=== PATIENT | female | born 2000 | race Caucasian/White ===

== ENCOUNTER → 2018-01-16 | Outpatient (CLI) | payer OTHER ==
--- NOTE | 2018-01-16 11:41 | US ---
EXAMINATION TYPE: US abdomen complete DATE OF EXAM: 01/16/2018 COMPARISON: CT 08/09/2015 CLINICAL HISTORY: R10.9 ABD PAIN,N94.6 DYSMENORRHEA. EXAM MEASUREMENTS: Liver Length: 12.8 cm Gallbladder Wall: surgically absent CBD: 0.3 cm Spleen: 14.0 cm Right Kidney: 11.7 x 4.2 x 5.4 cm Left Kidney: 10.4 x 5.2 x 5.2 cm Pancreas: Obscured by bowel gas Liver: Imaging limited to intercostal spaces due to gas(h/o constipation) Gallbladder: Surgically absent Evidence for sonographic Mills's sign: no CBD: wnl Spleen: slightly enlarged Right Kidney: No hydronephrosis or masses seen Left Kidney: No hydronephrosis or masses seen Upper IVC: Obscured by overlying bowel gas Abd Aorta: Obscured by overlying bowel gas The liver is homogenous. The intrahepatic portion of the IVC and proximal abdominal aorta are within normal limits. Common bile duct is unremarkable. The visualized portions of the pancreas are homog enous. The spleen is unremarkable. Kidneys are symmetric and free of hydronephrosis. No renal lesi ons are seen. IMPRESSION: 1. No distinct abnormality seen.
--- NOTE | 2018-01-16 11:44 | US ---
EXAMINATION TYPE: US pelvic complete DATE OF EXAM: 01/16/2018 COMPARISON: NONE CLINICAL HISTORY: R10.9 ABD PAIN,N94.6 DYSMENORRHEA. TECHNIQUE: . Transabdominal sonographic images of the pelvis were acquired. Transvaginal sonographi c images were medically necessary to better assess the following anatomy: Date of LMP: EXAM MEASUREMENTS: Uterus: 13.0 x 3.3 x 6.5 cm Endometrial Stripe: 0.3 cm Right Ovary: 3.1 x 2.6 x 3.3 cm Left Ovary: cm 1. Uterus: elongated, located lateral to bladder 2. Endometrium: wnl 3. Right Ovary: wnl 4. Left Ovary: wnl 5. Bilateral Adnexa: wnl 6. Posterior cul-de-sac: wnl IMPRESSION: No significant abnormality.
== END | disposition home or self-care (01) ==
LOC: RADUSWWP 10:09 → MERGE 10:20
PROVIDERS: ATTEND Family Medicine
DX: R10.9 Unspecified abdominal pain (principal)
CPT/HCPCS: 76700; 76856

== ENCOUNTER 2018-12-08 19:46 | Emergency (ER) | payer BC, OTHER ==
[2018-12-08] MEDS ORDERED: SODIUM CHLORIDE 0.9% 500 ML 500 ML IV STA ×2 (21:00→21:50)
[2018-12-08 21:39] LABS: Basophils % (A) 0 %; Eosinophils # (A) 0.1 k/uL (0-0.7); Eosinophils % (A) 1 %; HCT 35.9 % (34.0-46.0); HGB 11.1 gm/dL (11.4-16.0); Lymphocytes # (A) 1.8 k/uL (1.0-4.8); Lymphocytes % (A) 26 %; MCH 22.4 pg (25.0-35.0); MCV 72.2 fL (80.0-100.0); Mean Platelet Volume 6.8; Microcytosis Moderate; Monocytes # (A) 0.3 k/uL (0-1.0); Monocytes % (A) 5 %; Neutrophils # (A) 4.6 k/uL (1.3-7.7); Neutrophils % (A) 66 %; Platelet Count 243 k/uL (150-450); RBC 4.97 m/uL (3.80-5.40); RDW 14.6 % (11.5-15.5); WBC 6.9 k/uL (4.0-11.0)
[2018-12-08 21:47] LABS: ALT 12 U/L (9-52); AST 21 U/L (14-36); African American GFR (CKD) >90 (>60 ml/min/1.73 sqM); Albumin 4.7 g/dL (3.5-5.0); Alkaline Phosphatase 122 U/L (38-126); Anion Gap 11 mmol/L; Blood Urea Nitrogen 11 mg/dL (7-17); Calcium 9.1 mg/dL (8.4-10.2); Carbon Dioxide 24 mmol/L (22-30); Chloride 105 mmol/L (98-107); Glucose 94 mg/dL (74-99); Lipase 39 U/L (23-300); Potassium 3.8 mmol/L (3.5-5.1); Sodium 140 mmol/L (137-145); Total Bilirubin 0.3 mg/dL (0.2-1.3); Total Protein 8.1 g/dL (6.3-8.2)
[2018-12-08] MEDS ORDERED: PANTOPRAZOLE 40 MG/10 ML VIAL IVP STA (21:50)
[2018-12-08 22:26] LABS: Bacteria,Urine Many /hpf; Squamous Epithelial Cell,Urine 113 /hpf (0-4)
[2018-12-08 22:27] LABS: Appearance,Urine Bloody (Clear); Color,Urine Dark Red
[2018-12-08 22:28] LABS: RBC,Urine >182 /hpf (0-5); WBC,Urine >182 /hpf (0-5)
--- NOTE | 2018-12-08 23:03 | CT ---
EXAM: CT Abdomen and Pelvis With Intravenous Contrast CLINICAL HISTORY: ITS.REASON CT Reason: Pain TECHNIQUE: Axial computed tomography images of the abdomen and pelvis with intravenous contrast. This CT exam was performed using one or more of the following dose reduction techniques: automated exposure control, adjustment of the mA and/or kV according to patient size, and/or use of iterative reconstruction technique. COMPARISON: No relevant prior studies available. FINDINGS: Lung bases: Unremarkable. No mass. No consolidation. ABDOMEN: Liver: Unremarkable. No mass. Gallbladder and bile ducts: No abnormal ductal dilation or stones. Pancreas: Unremarkable. No mass. No ductal dilation. Spleen: Splenomegaly, 15.5 cm Adrenals: Unremarkable. No mass. Kidneys and ureters: Unremarkable. No solid mass. No hydronephrosis. Stomach and bowel: There is severe fecal impaction in the rectum with associated rectal wall thickening indicating stercoral colitis. Abundant stool throughout the colon. PELVIS: Appendix: No findings to suggest acute appendicitis. Bladder: Unremarkable. No mass. Reproductive: Unremarkable as visualized. ABDOMEN and PELVIS: Intraperitoneal space: Unremarkable. No free air. No significant fluid collection. Bones/joints: No acute fracture. No dislocation. Soft tissues: Unremarkable. Vasculature: No abdominal aortic aneurysm. Lymph nodes: Unremarkable. No enlarged lymph nodes. IMPRESSION: 1. There is severe fecal impaction in the rectum with associated rectal wall thickening indicating stercoral colitis. 2. Abundant stool throughout the colon.
--- NOTE | 2018-12-08 23:46 | ED ---
General Adult HPI - General Chief complaint: Abdominal Pain Stated complaint: Abd Pain Time Seen by Provider: 12/08/18 20:54 Source: patient, RN notes reviewed, old records reviewed Mode of arrival: ambulatory Limitations: no limitations - History of Present Illness Initial comments: 18-year-old female patient with past history of cholecystectomy. ED with approximately 3 days of epigastric abdominal pain. Patient reports that she has had nausea and vomiting. Patient denies any diarrhea. Patient reports that she has normal bowel movements. Patient denies any complaint this time. Denies any chest pain shortness of breath, fevers or chills. Patient denies any dysuria. Systemic: Pt denies fatigue, fever/chills, rash. Pt denies weakness, night s weats, weight loss. Neuro: Pt denies headache, visual disturbances, syncope or pre-syncope. HEENT: Pt denies ocular discharge or irritation, otalgia, rhinorrhea, pharyngitis or notable lymphadenopathy. Cardiopulmonary: Pt denies chest pain, SOB, heart palpitations, dyspnea on exertion. Abdominal/GI: Pt denies abdominal pain, n/v/d. : Pt denies dysuria, burning w/ urination, frequency/urgency. Denies new onset urinary or bowel incontinence. MSK: Pt denies myalgia, loss of strength or function in extremities. Neuro: Pt denies new onset weakness, paresthesias. - Related Data Home Medications Medication Instructions Recorded Confirmed Acetaminophen Tab [Tylenol Tab] 650 mg PO Q6H PRN 12/08/18 12/08/18 Previous Rx's Medication Instructions Recorded Pantoprazole Sodium [Protonix] 20 mg PO Q24HR 10 Days #10 12/08/18 tablet. Allergies Allergy/AdvReac Type Severity Reaction Status Date / Time No Known Allergies Allergy Verified 12/08/18 20:58 Review of Systems ROS Statement: Those systems with pertinent positive or pertinent negative responses have been documented in the HPI. ROS Other: All systems not noted in ROS Statement are negative. Past Medical History Past Medical History: No Reported History Additional Past Medical History / Comment(s): frequent constipation History of Any Multi-Drug Resistant Organisms: None Reported Past Surgical History: Section, Cholecystectomy, Orthopedic Surgery Additional Past Surgical History / Comment(s): tendon on middle finger left hand, colonoscopy Past Anesthesia/Blood Transfusion Reactions: Previous Problems w/ Anesthesia, Motion Sickness, Postoperative Nausea & Vomiting (PONV) Additional Past Anesthesia/Blood Transfusion Reaction / Comment(s): "hard time coming out" Past Psychological History: Anxiety, Depression Smoking Status: Never smoker Past Alcohol Use History: None Reported Past Drug Use History: None Reported - Past Family History Mother Family Medical History: No Reported History General Exam - General Exam Comments Initial Comments: Constitutional: NAD, AOX3, Pt has pleasant affect. HEENT: NC/AT, trachea midline, neck supple, no lymphadenopathy. Posterior pharynx non erythematous, without exudates. External ears appear normal, without discharge. Mucous membranes moist. Eyes PERRLA, EOM intact. There is no scleral icterus. No pallor noted. Cardiopulmonary: RRR, no murmurs, rubs or gallops, no JVD noted. Lungs CTAB in anterior and posterior beck. No peripheral edema. Abdominal exam: Abdomen soft and non-distended. Abdomen mild tenderness to palpation in epigastric region guarding or rigidity no ecchymoses. No others areas of abdominal tenderness.. Bowel sounds active in LLQ. No hepatosplenomegaly. No ecchymosis Neuro: CN II-XII grossly intact. No nuchal rigidity. No raccon eyes, no martins sign, no hemotympanum. No cervical spinal tenderness. MSK: No posterior calf tenderness bilaterally, homans sign negative bilaterally. Posterior tibialis and radial pulse +2 bilaterally. Sensation intact in upper and lower extremities. Full active ROM in upper and lower extremities, 5/5 stregnth. Limitations: no limitations Course Vital Signs 12/08/18 12/08/18 20:22 23:02 Temperature 99.0 F 98.6 F Pulse Rate 91 89 Respiratory 18 18 Rate Blood Pressure 117/76 133/96 O2 Sat by Pulse 100 99 Oximetry Medical Decision Making - Medical Decision Making 18-year-old female patient with past history of cholecystectomy. ED with approximately 3 days of epigastric abdominal pain. Patient reports that she has had nausea and vomiting. Patient denies any diarrhea. Patient reports that she has normal bowel movements. Patient denies any complaint this time. Denies any chest pain shortness of breath, fevers or chills. Patient denies any dysuria. Patient vital signs stable, afebrile. Physical exam displayed mild epigastric tenderness. No other acute pathology. investigations reveal n onpresent CBC, CMP. Lipase within normal limits. UA displayed blood, patient is on her menses right now. Urine will be cultured. HCG negative. CT abdomen and pelvis displayed a severe fecal impaction rectum with associated rectal wall thickening. Abundant stool throughout the colon. Patient was recommended digital disimpaction. Patient declined stated that she is having regular bowel movements and had one today which was normal. Patient pain resolved after Protonix. I believe the patient's pain was likely gastritis in nature. Patient was discharged with Protonix and GI follow-up. Patient will also follow up with primary care provider in 1-2 days. Patient return to ER condition worsens. Case discussed with Dr. Marinelli. - Lab Data Result diagrams: 12/08/18 21:27 12/08/18 21: Lab Results 12/08/18 12/08/18 12/08/18 Range/Units 21:27 21:27 21:27 WBC 6.9 (4.0-11.0) k/uL RBC 4.97 (3.80-5.40) m/uL Hgb 11.1 L (11.4-16.0) gm/dL Hct 35.9 (34.0-46.0) % MCV 72.2 L (80.0-100.0) fL MCH 22.4 L (25.0-35.0) pg MCHC 31.0 (31.0-37.0) g/dL RDW 14.6 (11.5-15.5) % Plt Count 243 (150-450) k/uL Neutrophils % 66 % Lymphocytes % 26 % Monocytes % 5 % Eosinophils % 1 % Basophils % 0 % Neutrophils # 4.6 (1.3-7.7) k/uL Lymphocytes # 1.8 (1.0-4.8) k/uL Monocytes # 0.3 (0-1.0) k/uL Eosinophils # 0.1 (0-0.7) k/uL Basophils # 0.0 (0-0.2) k/uL Microcytosis Moderate Sodium 140 (137-145) mmol/L Potassium 3.8 (3.5-5.1) mmol/L Chloride 105 (98-107) mmol/L Carbon Dioxide 24 (22-30) mmol/L Anion Gap 11 mmol/L BUN 11 (7-17) mg/dL Creatinine 0.62 (0.52-1.04) mg/dL Est GFR (CKD-EPI)AfAm >90 (>60 ml/min/1.73 sqM) Est GFR (CKD-EPI)NonAf >90 (>60 ml/min/1.73 sqM) Glucose 94 (74-99) mg/dL Plasma Lactic Acid Henrry 0.8 (0.7-2.0) mmol/L Calcium 9.1 (8.4-10.2) mg/dL Total Bilirubin 0.3 (0.2-1.3) mg/dL AST 21 (14-36) U/L ALT 12 (9-52) U/L Alkaline Phosphatase 122 (38-126) U/L Total Protein 8.1 (6.3-8.2) g/dL Albumin 4.7 (3.5-5.0) g/dL Lipase 39 (23-300) U/L Urine Color Urine Appearance (Clear) Urine RBC (0-5) /hpf Urine WBC (0-5) /hpf Urine WBC Clumps (None) /hpf Ur Squamous Epith Cells (0-4) /hpf Urine Bacteria (None) /hpf Urine HCG, Qual (Not Detectd) 12/08/18 12/08/18 Range/Units 22:05 22:05 WBC (4.0-11.0) k/uL RBC (3.80-5.40) m/uL Hgb (11.4-16.0) gm/dL Hct (34.0-46.0) % MCV (80.0-100.0) fL MCH (25.0-35.0) pg MCHC (31.0-37.0) g/dL RDW (11.5-15.5) % Plt Count (150-450) k/uL Neutrophils % % Lymphocytes % % Monocytes % % Eosinophils % % Basophils % % Neutrophils # (1.3-7.7) k/uL Lymphocytes # (1.0-4.8) k/uL Monocytes # (0-1.0) k/uL Eosinophils # (0-0.7) k/uL Basophils # (0-0.2) k/uL Microcytosis Sodium (137-145) mmol/L Potassium (3.5-5.1) mmol/L Chloride (98-107) mmol/L Carbon Dioxide (22-30) mmol/L Anion Gap mmol/L BUN (7-17) mg/dL Creatinine (0.52-1.04) mg/dL Est GFR (CKD-EPI)AfAm (>60 ml/min/1.73 sqM) Est GFR (CKD-EPI)NonAf (>60 ml/min/1.73 sqM) Glucose (74-99) mg/dL Plasma Lactic Acid Henrry (0.7-2.0) mmol/L Calcium (8.4-10.2) mg/dL Total Bilirubin (0.2-1.3) mg/dL AST (14-36) U/L ALT (9-52) U/L Alkaline Phosphatase (38-126) U/L Total Protein (6.3-8.2) g/dL Albumin (3.5-5.0) g/dL Lipase (23-300) U/L Urine Color Dark Red Urine Appearance Bloody H (Clear) Urine RBC >182 H (0-5) /hpf Urine WBC >182 H (0-5) /hpf Urine WBC Clumps Many H (None) /hpf Ur Squamous Epith Cells 113 H (0-4) /hpf Urine Bacteria Many H (None) /hpf Urine HCG, Qual Not Detected (Not Detectd) Disposition Clinical Impression: Abdominal pain, Gastritis Disposition: HOME SELF-CARE Condition: Stable Instructions (If sedation given, give patient instructions): Abdominal Pain (ED), Gastritis (ED) Additional Instructions: Patient to adhere to previously discussed treatment plan and will take medication(s) as directed. Patient to follow up with PCP in 1-2 days. Patient to return to ED if symptoms do not improve. Follow-up with primary care provider in 1-2 days. Follow with GI consult in 1-2 days. Take Medication as directed. Return to ER if condition worsens. Prescriptions: Pantoprazole Sodium [Protonix] 20 mg PO Q24HR 10 Days #10 tablet.dr Is patient prescribed a controlled substance at d/c from ED?: No Referrals: Juan Daniel Monge DO [Primary Care Provider] - 1-2 days Gabriel Castellanos MD [STAFF PHYSICIAN] - 1-2 days
[2018-12-09] VITALS: BP 124/60; PULSE 84; RESP 16; TEMP 98
== END 2018-12-09 00:16 | disposition home or self-care (01) ==
LOC: EC 19:46
DX: K29.70 Gastritis, unspecified, without bleeding (principal); K56.41 Fecal impaction; Z53.29 Procedure and treatment not carried out because of patient's decision for other reasons; Z90.49 Acquired absence of other specified parts of digestive tract; Z32.02 Encounter for pregnancy test, result negative
CPT/HCPCS: 99284; 96374; 96361 ×2; 36415; 80053; 83605; 83690; 85025; 81001; 81025; 74177; C9113; Q9967; 87086

== ENCOUNTER 2020-11-08 12:21 | Outpatient (CLI) | payer BC, OTHER ==
[2020-11-08 13:34] VITALS: BP 125/75; PULSE 105; RESP 16; TEMP 97.2
== END 2020-11-08 13:21 | disposition home or self-care (01) ==
LOC: FBPOP 12:21
PROVIDERS: ATTEND Obstetrics & Gynecology
DX: O36.8130 Decreased fetal movements, third trimester, not applicable or unspecified (principal); Z3A.36 36 weeks gestation of pregnancy
CPT/HCPCS: 59025

== ENCOUNTER 2020-11-17 | Outpatient (CLI) | payer BC, OTHER ==
--- NOTE | 2020-11-24 11:29 | P.MSEPDOC ---
Presenting Problems - Arrival Data Date of Arrival on Unit: 11/17/20 Time of Arrival on Unit: 13:06 Mode of Transport: Ambulatory - Complaint OB-Reason for Admission/Chief Complaint: Possible Onset of Labor Medical History - Information : 2 Para: 1 Term: 1 : 0 Abortions: Spontaneous or Elective: 0 Number of Living Children: 1 - Gestational Age Gestational Age by REI (wks/days): 37 Weeks and 6 Days - History Complications: Prior Review of Systems - Review of Systems Constitutional: No problems Breast: No problems ENT: No problems Cardiovascular: No problems Respiratory: No problems Gastrointestinal: No problems Genitourinary: No problems Musculoskeletal: No problems Neurological: No problems Skin: No problems Vital Signs - Temperature Temperature: 98.0 F Temperature Source: Oral - Pulse Right Sitting Pulse Rate: 94 Pulse Assessment Method: Automatic Cuff - Respirations Respiratory Rate: 16 Oxygen Delivery Method: Room Air - Blood Pressure Right Arm Blood Pressure: 128/70 Blood Pressure Mean: 89 Blood Pressure Source: Automatic Cuff Medical Screen Scoring (Pre) - Cervical Exam Dilation: 0 cm = 0 Membranes: Intact - Uterine Contractions Frequency: > 5 minutes apart = 1 Duration: N/A Intensity: N/A - Maternal Vital Signs Maternal Temperature: N/A Maternal Blood Pressure: N/A Signs of Preeclampsia: N/A Maternal Respirations: N/A - Maternal Trauma Maternal Trauma: N/A - Assessment - Baby A Baseline FHR: 140 Heart Rate - NICHD Category: Category I (Normal) = 0 NST: Reactive Position: N/A Station: N/A - Total Score - Baby A Total Score - Baby A: 1 - Total Score - Baby B Total Score - Baby B: 1 - Total Score - Baby C Total Score - Baby C: 1 - Level of Risk - Baby A Level of Risk - Baby A: Low (0-5) - Level of Risk - Baby B Level of Risk - Baby B: Low (0-5) - Level of Risk - Baby C Level of Risk - Baby C: Low (0-5) Physician Notification (Pre) - Physician Notified Physician Notified Date: 11/17/20 Physician Notified Time: 13:01 New Order Received: Yes (D/c home) Disposition - Disposition OB Disposition: Discharge to home, Written follow up instructions reviewed Discharge Date: 11/17/20 Discharge Time: 13:05 I agree with the RN Medical Screening Exam: Yes Case reviewed; plan agreed upon as documented in EMR&OBIX.: Yes Diagnosis: FALSE LABOR BEFORE 37 COMPLETED WEEKS OF GEST, THIRD TRI
== END 2020-11-17 14:05 | disposition home or self-care (01) ==
CPT/HCPCS: 59025; 99213

== ENCOUNTER 2020-11-25 05:55 | Inpatient (IN) | payer BC, OTHER ==
[2020-11-24 12:40] VITALS: BMI 43.4
[2020-11-25] MEDS ORDERED: CITRIC ACID-SODIUM CITRATE 15 ML CUP PO ONE (06:14)
[2020-11-25] MEDS: LACTATED RINGERS 1,000 ML IV SCH ×2 (06:25→14:22)
[2020-11-25 06:34] LABS: Anisocytosis Slight; Basophils % (A) 0 %; Eosinophils # (A) 0.1 k/uL (0-0.7); Eosinophils % (A) 2 %; HCT 37.4 % (34.0-46.0); HGB 12.3 gm/dL (11.4-16.0); Lymphocytes # (A) 2.3 k/uL (1.0-4.8); Lymphocytes % (A) 24 %; MCHC 32.9 g/dL (31.0-37.0); MCV 82.1 fL (80.0-100.0); Monocytes # (A) 0.4 k/uL (0-1.0); Monocytes % (A) 4 %; Neutrophils # (A) 6.7 k/uL (1.3-7.7); Neutrophils % (A) 69 %; Platelet Count 191 k/uL (150-450); RBC 4.55 m/uL (3.80-5.40); RDW 16.3 % (11.5-15.5); WBC 9.7 k/uL (3.8-10.6)
[2020-11-25 07:01] VITALS: RESP 16
[2020-11-25] MEDS ORDERED: KETOROLAC 15 MG/ML 1 ML VIAL ONE (07:59)
[2020-11-25] MEDS ORDERED: PHENYLEPHRINE-0.9% NACL SYG 1,000 MCG/10 ML SYRINGE ONE (07:59)
[2020-11-25] MEDS ORDERED: ONDANSETRON 4 MG/2 ML VIAL ONE (07:59)
[2020-11-25] MEDS ORDERED: OXYTOCIN 10 UNIT/ML 1 ML VIAL ONE (07:59)
[2020-11-25] MEDS ORDERED: MORPHINE SULFATE (PF) 0.3 MG/0.3 ML SYR ONE (07:59)
[2020-11-25] MEDS ORDERED: NALBUPHINE 10 MG/ML (1 ML AMP) ONE (07:59)
[2020-11-25] MEDS ORDERED: ZOLPIDEM 5 MG TAB PO PRN (08:39)
[2020-11-25] MEDS ORDERED: SIMETHICONE 80 MG CHEWABLE PO PRN (08:39)
[2020-11-25] MEDS ORDERED: ONDANSETRON 4 MG/2 ML VIAL IVP PRN (08:39)
[2020-11-25] MEDS ORDERED: diphenhydrAMINE 25 MG CAP PO PRN (08:39)
[2020-11-25] MEDS ORDERED: NALOXONE 0.4 MG/ML 1 ML VIAL IV PRN (08:39)
[2020-11-25] MEDS ORDERED: diphenhydrAMINE 50 MG/ML 1 ML VIAL IVP PRN ×2 (08:39)
[2020-11-25] MEDS ORDERED: diphenhydrAMINE 50 MG CAP PO PRN (08:39)
[2020-11-25] MEDS ORDERED: METOCLOPRAMIDE 5 MG/ML 2 ML VIAL IVP PRN (08:39)
[2020-11-25] MEDS ORDERED: LANOLIN CREAM 5 GM TUBE TOPICAL PRN (08:39)
[2020-11-25] MEDS ORDERED: OXYTOCIN 30 UNITS/500 ML NS 30 UNIT in SALINE 1 500ML.BAG IV SCH (08:45)
--- NOTE | 2020-11-25 12:46 | P.HPOB ---
History of Present Illness H&P Date: 11/25/20 Chief Complaint: repeat low transverse 20-year-old presents at 39 weeks for repeat low transverse . Review of Systems All systems: negative Constitutional: Denies chills, Denies fever Eyes: denies blurred vision, denies pain Ears, nose, mouth and throat: Denies headache, Denies sore throat Cardiovascular: Denies chest pain, Denies shortness of breath Respiratory: Denies cough Gastrointestinal: Denies abdominal pain, Denies diarrhea, Denies nausea, Denies vomiting Genitourinary: Denies dysuria, Denies hematuria Musculoskeletal: Denies myalgias Integumentary: Denies pruritus, Denies rash Neurological: Denies numbness, Denies weakness Psychiatric: Denies anxiety, Denies depression Endocrine: Denies fatigue, Denies weight change Past Medical History Past Medical History: No Reported History Additional Past Medical History / Comment(s): frequent constipation, occasional heartburn, anemia, . History of Any Multi-Drug Resistant Organisms: None Reported Past Surgical History: Section, Cholecystectomy, Orthopedic Surgery Additional Past Surgical History / Comment(s): tendon on middle finger left hand, colonoscopy Past Anesthesia/Blood Transfusion Reactions: Previous Problems w/ Anesthesia, Motion Sickness, Postoperative Nausea & Vomiting (PONV) Additional Past Anesthesia/Blood Transfusion Reaction / Comment(s): hard time coming out- states too much medication and they called EMS (6 years old) Past Psychological History: No Psychological Hx Reported Smoking Status: Never smoker Past Alcohol Use History: None Reported Past Drug Use History: None Reported - Past Family History Mother Family Medical History: No Reported History Medications and Allergies Home Medications Medication Instructions Recorded Confirmed Type Pedi Multivit No.25/Folic Acid 1 tab PO DAILY 11/17/20 11/25/20 History [Flintstones Multivit Chew Tab] Iron 45 mg PO DAILY 11/24/20 11/25/20 History Allergies Allergy/AdvReac Type Severity Reaction Status Date / Time No Known Allergies Allergy Verified 11/24/20 12:26 Exam Osteopathic Statement: *. No significant issues noted on an osteopathic structural exam other than those noted in the History and Physical/Consult. Vital Signs Temp Pulse Resp BP Pulse Ox 11/25/20 12:00 97.9 F 78 16 116/71 95 11/25/20 10:49 84 16 102/57 99 11/25/20 10:19 70 16 101/55 98 11/25/20 09:49 85 16 99/59 98 11/25/20 09:34 71 16 102/52 96 11/25/20 09:18 68 16 97/50 97 11/25/20 09:04 76 16 108/54 97 11/25/20 08:49 97.0 F L 74 16 100/50 95 11/25/20 06:12 98.8 F 96 16 125/60 Intake and Output 11/24/20 11/25/20 11/25/20 22:59 06:59 14:59 Other: Voiding Method Indwelling Catheter Weight 104.326 kg Heart: Regular rate and rhythm Lungs: Clear to auscultation bilaterally Abdomen: Soft, nontender Extremities: Negative Homans sign Results Result Diagrams: 11/25/20 06:13 Abnormal Lab Results - Last 24 Hours (Table) 11/25/20 Range/Units 06:13 RDW 16.3 H (11.5-15.5) % Assessment and Plan (1) 39 weeks gestation of Current Visit: No Status: Acute Code(s): Z3A.39 - 39 WEEKS GESTATION OF SNOMED Code(s): 61593841 (2) Previous section Current Visit: Yes Status: Acute Code(s): Z98.891 - HISTORY OF UTERINE SCAR FROM PREVIOUS SURGERY SNOMED Code(s): 921612990 Plan: 1. Repeat low transverse
--- NOTE | 2020-11-25 12:50 | P.OP ---
Date of Procedure: 11/25/20 Preoperative Diagnosis: 1. 39 week gestation 2. Previous section Postoperative Diagnosis: 1. 39 week gestation 2. Previous section Procedure(s) Performed: Repeat low transverse Anesthesia: spinal Surgeon: Krupa Navarrete Regional Sales Representative #1: Isabel Glover Estimated Blood Loss (ml): 202 IV fluids (ml): 1,000 Urine output (ml): 100 Pathology: none sent Condition: stable Disposition: floor Operative Findings: Viable infant, Apgars 9, 9, weight 8 lbs. 15 oz. Description of Procedure: Patient was taken to the operating room where spinal anesthesia was found be adequate. She was prepped and draped in normal sterile fashion in dorsal supine position with a leftward tilt. Pfannenstiel skin incision was made the scalpel and carried through to the underlying layer of fascia with the scalpel. Fascia was incised in midline and carried bilaterally with the Rodgers scissors. The superior aspect of the fascial incision was grasped with [place] clamps elevated and the underlying rectus muscles dissected off with the Rodgers's. Attention was then turned to inferior aspect of same incision which in a similar fashion was grasped tented up and the underlying rectus muscles dissected off with the Rodgers's. The rectus muscles were the midline and the peritoneum was identified tented up and entered sharply with the scalpel. The incision was extended superiorly and inferiorly with good visualization of the bladder. The bladder blade was inserted and the vesicouterine peritoneum was incised the Metzenbaums then carried bilaterally and bladder flap created digitally. A low transverse incision was then made on the uterus with the scalpel. This was carried bilaterally and digital manner. Infant delivered in normal breech f ashion, nose and mouth bulb suctioned, cord clamped and cut, handed off to waiting nurses. Apgars 9,9, weight 8 lbs. 15 oz. Placenta delivered manually, intact with three-vessel cord. The uterus was too large to come through the abdominal incision so was left in vivo for repair. The uterus was cleared of all clots and debris. The uterine incision was closed with 0 Vicryl in a running locked fashion. Second layer of the same sutures used in imbricating fashion to obtain excellent hemostasis. Both ovaries and tubes appeared normal. The peritoneum was reapproximated using 2-0 Vicryl in a running fashion. The muscles were reapproximated using 2-0 Vicryl in interrupted fashion. The fascia was reapproximated using 0 Vicryl in a running fashion. The subcutaneous tissues closed with 3-0 Vicryl running fashion. The skin was closed alyssa. Patient tolerated the procedure well, sponge and instrument counts were correct times 2 and she was taken to the recovery room in stable condition.
[2020-11-25] MEDS: ACETAMINOPHEN TAB 500 MG TAB PO SCH ×3 (13:47→23:59)
[2020-11-25] MEDS: KETOROLAC 15 MG/ML 1 ML VIAL IVP SCH ×2 (14:59→21:16)
[2020-11-25] MEDS: IBUPROFEN 600 MG TAB PO SCH ×2 (19:41→21:28)
[2020-11-25] MEDS: SENNOSIDES-DOCUSATE SODIUM 1 EACH TAB PO SCH (19:46)
[2020-11-26] MEDS: LACTATED RINGERS 1,000 ML IV SCH
[2020-11-26] MEDS: KETOROLAC 15 MG/ML 1 ML VIAL IVP SCH ×3 (03:10→22:17)
[2020-11-26] MEDS: IBUPROFEN 600 MG TAB PO SCH ×4 (03:34→22:16)
[2020-11-26] MEDS: ACETAMINOPHEN TAB 500 MG TAB PO SCH ×3 (05:31→18:22)
[2020-11-26 08:10] LABS: Basophils % (A) 0 %; Eosinophils # (A) 0.1 k/uL (0-0.7); Eosinophils % (A) 1 %; HGB 10.9 gm/dL (11.4-16.0); Lymphocytes # (A) 1.5 k/uL (1.0-4.8); Lymphocytes % (A) 18 %; MCH 29.1 pg (25.0-35.0); MCHC 35.1 g/dL (31.0-37.0); MCV 82.9 fL (80.0-100.0); Mean Platelet Volume 7.8; Monocytes # (A) 0.5 k/uL (0-1.0); Monocytes % (A) 6 %; Neutrophils # (A) 6.3 k/uL (1.3-7.7); Neutrophils % (A) 73 %; Platelet Count 141 k/uL (150-450); RBC 3.74 m/uL (3.80-5.40); RDW 15.6 % (11.5-15.5); WBC 8.6 k/uL (3.8-10.6)
[2020-11-26] MEDS: SENNOSIDES-DOCUSATE SODIUM 1 EACH TAB PO SCH ×2 (08:39→22:16)
--- NOTE | 2020-11-26 08:48 | P.PNOBGPC ---
Subjective - Subjective Principal diagnosis: Postop day 1 Interval history: Doing very well this morning. Ambulating, voiding and tolerating her diet. Will plan continue current care. Patient reports: Reports appetite normal, Reports voiding normally, Reports pain well controlled, Reports ambulating normally : doing well Objective - Vital Signs Latest vital signs: Vital Signs Temp Pulse Resp BP Pulse Ox 11/26/20 03:33 97.8 F 70 16 90/49 100 11/26/20 00:00 96.9 F L 75 16 99/64 97 11/25/20 19:43 97.3 F L 69 16 99/63 98 11/25/20 16:00 98.5 F 91 16 119/58 11/25/20 12:00 97.9 F 78 16 116/71 95 11/25/20 10:49 84 16 102/57 99 11/25/20 10:19 70 16 101/55 98 11/25/20 09:49 85 16 99/59 98 11/25/20 09:34 71 16 102/52 96 11/25/20 09:18 68 16 97/50 97 11/25/20 09:04 76 16 108/54 97 11/25/20 08:49 97.0 F L 74 16 100/50 95 Intake and Output 11/25/20 11/26/20 11/26/20 22:59 06:59 14:59 Output Total 900 475 Balance -900 -475 Output: Urine 900 475 Uretheral (Rajan) 300 Other: # Voids 0 1 - Exam Lungs: bilateral: normal Chest: Normal S1, Normal S2 Extremities: Present: normal Abdomen: Present: normal appearance, soft. Absent: distention, tenderness Incision: Present: normal, dry, intact Uterus: Present: normal, firm - Labs Labs: Abnormal Lab Results - Last 24 Hours (Table) 11/26/20 Range/Units 07:11 RBC 3.74 L (3.80-5.40) m/uL Hgb 10.9 L (11.4-16.0) gm/dL Hct 31.0 L (34.0-46.0) % RDW 15.6 H (11.5-15.5) % Plt Count 141 L (150-450) k/uL
--- NOTE | 2020-11-26 17:44 | P.PN ---
Progress Note - Text Progress Note Date: 11/26/20 Postoperative day 1 status post section under spinal anesthesia, and intrathecal morphine given for postoperative analgesia, patient doing well, there is no anesthesia related complications Patient had no headache, vital signs stable Assessment and plan = postop day 1 status post , doing well there is no anesthesia related complication
[2020-11-27] MEDS: ACETAMINOPHEN TAB 500 MG TAB PO SCH ×2 (00:50→06:30)
[2020-11-27] MEDS: IBUPROFEN 600 MG TAB PO SCH ×2 (03:55→10:41)
[2020-11-27 08:24] VITALS: BP 109/70; PULSE 87; TEMP 98.4
[2020-11-27] MEDS: SENNOSIDES-DOCUSATE SODIUM 1 EACH TAB PO SCH (08:24)
--- NOTE | 2020-11-27 09:29 | P.DS ---
Providers Date of admission: 11/25/20 05:55 Expected date of discharge: 11/27/20 Attending physician: Krupa Navarrete Primary care physician: Stated None Hospital Course: Patient is doing very well postop day 2. She is ambulating, voiding and tolerating her diet. She voices no complaints and is requesting discharge home today. Prescriptions had Lexx been provided. She is aware to have no heavy lifting, limit stairs and driving. Pelvic rest. If any high temperatures, heavy bleeding, or severe pain she'll notify our office. On physical exam vital signs are stable and afebrile. Heart regular, lungs clear, extremities without pain. Abdomen soft, positive bowel sounds are noted incision appears clean dry and intact and will plan to remove alyssa prior to discharge. All other questions are answered for her at this time. She'll follow up with Dr. Navarrete this week. Patient Condition at Discharge: Good Plan - Discharge Summary Discharge Rx Participant: No New Discharge Prescriptions: New Ibuprofen [Motrin] 600 mg PO Q6HR PRN #30 tab PRN Reason: Pain HYDROcodone/APAP 5-325MG [[place] 5-325] 1 tab PO Q4HR PRN #30 tab PRN Reason: Pain No Action Pedi Multivit No.25/Folic Acid [[place] Multivit Chew Tab] 1 tab PO DAILY Iron 45 mg PO DAILY Discharge Medication List Pedi Multivit No.25/Folic Acid [[place] Multivit Chew Tab] 1 tab PO DAILY 11/17/20 [History] Iron 45 mg PO DAILY 11/24/20 [History] HYDROcodone/APAP 5-325MG [[place] 5-325] 1 tab PO Q4HR PRN #30 tab 11/26/20 [Rx] Ibuprofen [Motrin] 600 mg PO Q6HR PRN #30 tab 11/26/20 [Rx] Follow up Appointment(s)/Referral(s): Krupa Navarrete DO [Doctor of Osteopathic Medicine] - 12/02/20 9:00 am (6 Week follow up appointment January 06 @ 11:15) Patient Instructions/Handouts: (DC) Activity/Diet/Wound Care/Special Instructions: No heavy lifting, limit stairs and driving, and pelvic rest. If any high temperatures, heavy bleeding, or severe pain call our office Discharge Disposition: HOME SELF-CARE
== END 2020-11-27 12:45 | disposition home or self-care (01) | DRG 788 ==
LOC: 4FBP 05:55
PROVIDERS: ADMIT Obstetrics & Gynecology; ATTEND Obstetrics & Gynecology
PROC: 10D00Z1 Extraction of Products of Conception, Low, Open Approach (ICD-10-PCS; principal; 2020-11-25 08:00)
DX: O34.211 Maternal care for low transverse scar from previous cesarean delivery (principal); Z37.0 Single live birth; Z3A.39 39 weeks gestation of pregnancy
CPT/HCPCS: 85025; 86850; 86900; 86901

== ENCOUNTER 2022-05-08 18:13 | Emergency (ER) | payer BC, OTHER ==
[2022-05-08 18:19] VITALS: BP 120/69; PULSE 114; RESP 20; TEMP 98.5
[2022-05-08] MEDS ORDERED: AMOXICILLIN 500 MG CAP PO STA (19:18)
[2022-05-08] MEDS ORDERED: dexAMETHasone 2 MG TAB PO STA (19:18)
--- NOTE | 2022-05-08 19:39 | ED ---
Neck Injury/Pain HPI - General Chief Complaint: Neck Pain/Injury Stated Complaint: neck swelling Time Seen by Provider: 05/08/22 18:59 Mode of arrival: ambulatory Limitations: no limitations - History of Present Illness Initial Comments: Patient states that she has some swelling on the right side of the neck. She has an appointment with her dentist tomorrow. She feels like she has no infection. She has no trouble opening her mouth. She has no trouble swallowing. She tolerates solid and liquid oral intake. She has no neck stiffness. She has no fevers or chills. She has no headache. She has no change in vision or hearing. - Related Data Home Medications Medication Instructions Recorded Confirmed Pedi Multivit No.25/Folic Acid 1 tab PO DAILY 11/17/20 11/25/20 [Fl[place]stones Multivit Chew Tab] Iron 45 mg PO DAILY 11/24/20 11/25/20 Previous Rx's Medication Instructions Recorded HYDROcodone/APAP 5-325MG [[place] 1 tab PO Q4HR PRN #30 tab 11/26/20 5-325] Ibuprofen [Motrin] 600 mg PO Q6HR PRN #30 tab 11/26/20 Amoxicillin 500 mg PO Q8H #30 capsule 05/08/22 Allergies Allergy/AdvReac Type Severity Reaction Status Date / Time No Known Allergies Allergy Verified 05/08/22 18:19 Review of Systems ROS Statement: Those systems with pertinent positive or pertinent negative responses have been documented in the HPI. ROS Other: All systems not noted in ROS Statement are negative. Past Medical History Past Medical History: No Reported History Additional Past Medical History / Comment(s): frequent constipation History of Any Multi-Drug Resistant Organisms: None Reported Past Surgical History: Section, Cholecystectomy, Orthopedic Surgery Additional Past Surgical History / Comment(s): tendon on middle finger left hand, colonoscopy Past Anesthesia/Blood Transfusion Reactions: Previous Problems w/ Anesthesia, Motion Sickness, Postoperative Nausea & Vomiting (PONV) Additional Past Anesthesia/Blood Transfusion Reaction / Comment(s): "hard time coming out" Past Psychological History: Anxiety, Depression Smoking Status: Never smoker Past Alcohol Use History: None Reported Past Drug Use History: None Reported, Marijuana - Past Family History Mother Family Medical History: No Reported History General Exam Limitations: no limitations General appearance: alert, in no apparent distress Head exam: Present: atraumatic, normocephalic, normal inspection Eye exam: Present: normal appearance, PERRL, EOMI. Absent: scleral icterus, conjunctival injection, periorbital swelling ENT exam: Present: normal exam, mucous membranes moist Neck exam: Present: normal inspection. Absent: tenderness, meningismus, lymphadenopathy Respiratory exam: Present: normal lung sounds bilaterally. Absent: respiratory distress, wheezes, rales, rhonchi, stridor Cardiovascular Exam: Present: regular rate, normal rhythm, normal heart sounds. Absent: systolic murmur, diastolic murmur, rubs, gallop, clicks GI/Abdominal exam: Present: soft, normal bowel sounds. Absent: distended, tenderness, guarding, rebound, rigid Extremities exam: Present: normal inspection, full ROM, normal capillary refill. Absent: tenderness, pedal edema, joint swelling, calf tenderness Back exam: Present: normal inspection Neurological exam: Present: alert, oriented X3, CN II-XII intact Psychiatric exam: Present: normal affect, normal mood Skin exam: Present: warm, dry, intact, normal color. Absent: rash Course Vital Signs 05/08/22 18:16 Temperature 98.5 F Pulse Rate 114 H Respiratory 20 Rate Blood Pressure 120/69 O2 Sat by Pulse 99 Oximetry Medical Decision Making - Medical Decision Making Patient complains of swelling, with what appears to be a dental infection. She has no evidence of deep space infection. She has no evidence of [place] angina. There is no evidence of impending airway issues. She is stable for outpatient follow-up. Disposition Clinical Impression: Dental infection Disposition: HOME SELF-CARE Condition: Good Instructions (If sedation given, give patient instructions): Dental Abscess (ED) Prescriptions: Amoxicillin 500 mg PO Q8H #30 capsule Is patient prescribed a controlled substance at d/c from ED?: No Referrals: Juan Daniel Monge DO [Primary Care Provider] - 1-2 days
== END 2022-05-08 20:03 | disposition home or self-care (01) ==
LOC: EC 18:13
DX: K04.7 Periapical abscess without sinus (principal); F32.A Depression, unspecified; F41.9 Anxiety disorder, unspecified; F12.90 Cannabis use, unspecified, uncomplicated; Z79.899 Other long term (current) drug therapy
CPT/HCPCS: 99283; J8540

== ENCOUNTER 2022-05-31 22:50 | Emergency (ER) | payer BC, OTHER ==
[2022-05-31 22:54] VITALS: RESP 18
[2022-06-01 02:52] VITALS: BP 124/85; PULSE 68; TEMP 98.6
--- NOTE | 2022-06-01 03:08 | XR ---
EXAMINATION TYPE: XR chest 2V DATE OF EXAM: 06/01/2022 COMPARISON: NONE HISTORY: Cough and congestion TECHNIQUE: FINDINGS: Heart is normal. Lungs are clear of infiltrate. No heart failure. There are no hilar masses . The bony thorax is intact. IMPRESSION: No active cardiopulmonary disease. Normal heart.
--- NOTE | 2022-06-01 03:35 | ED ---
URI HPI - General Chief Complaint: Upper Respiratory Infection Stated Complaint: SOB,COUGH Time Seen by Provider: 06/01/22 02:12 Source: patient, family, RN notes reviewed Mode of arrival: ambulatory Limitations: no limitations - History of Present Illness Initial Comments: This is a 21-year-old female who presents to the emergency department for coughing and congestion. Symptoms have been present for 2-3 days. She feels like she is having difficulty catching her breath. Her son and have similar symptoms. She has not measured any fevers. Denies any history of asthma or other respiratory illnesses. She used her 's nebulizer, which she states was beneficial. The cough is keeping her up at night, and is her most bothersome symptom at this point. Denies any fevers, chills, sore throat, chest pain, palpitations, abdominal pain, nausea, vomiting, diarrhea, back pain, or headaches. MD Complaint: cough, nasal congestion Onset/Timin -: days(s) Context: sick contacts - Related Data Home Medications Medication Instructions Recorded Confirmed Pedi Multivit No.25/Folic Acid 1 tab PO DAILY 11/17/20 11/25/20 [Flintstones Multivit Chew Tab] Iron 45 mg PO DAILY 11/24/20 11/25/20 Previous Rx's Medication Instructions Recorded HYDROcodone/APAP 5-325MG [[place] 1 tab PO Q4HR PRN #30 tab 11/26/20 5-325] Ibuprofen [Motrin] 600 mg PO Q6HR PRN #30 tab 11/26/20 Amoxicillin 500 mg PO Q8H #30 capsule 05/08/22 Ipratropium-Albuterol Nebulize 3 ml INHALATION Q6H PRN #90 ml 06/01/22 [Duoneb 0.5 mg-3 mg/3 ml Soln] Promethazine/Dextromethorphan 5 ml PO Q4-6H PRN #473 ml 06/01/22 [Promethazine-Dm Syrup] predniSONE 50 mg PO DAILY 5 Days #5 tablet 06/01/22 Allergies Allergy/AdvReac Type Severity Reaction Status Date / Time No Known Allergies Allergy Verified 05/31/22 22:54 Review of Systems ROS Statement: Those systems with pertinent positive or pertinent negative responses have been documented in the HPI. ROS Other: All systems not noted in ROS Statement are negative. Past Medical History Past Medical History: No Reported History Additional Past Medical History / Comment(s): frequent constipation History of Any Multi-Drug Resistant Organisms: None Reported Past Surgical History: Section, Cholecystectomy, Orthopedic Surgery Additional Past Surgical History / Comment(s): tendon on middle finger left hand, colonoscopy Past Anesthesia/Blood Transfusion Reactions: Previous Problems w/ Anesthesia, Motion Sickness, Postoperative Nausea & Vomiting (PONV) Additional Past Anesthesia/Blood Transfusion Reaction / Comment(s): "hard time coming out" Past Psychological History: Anxiety, Depression Smoking Status: Never smoker Past Alcohol Use History: None Reported Past Drug Use History: None Reported, Marijuana - Past Family History Mother Family Medical History: No Reported History General Exam Limitations: no limitations General appearance: alert, in no apparent distress Head exam: Present: atraumatic, normocephalic, normal inspection Respiratory exam: Present: wheezes Cardiovascular Exam: Present: regular rate, normal rhythm, normal heart sounds. Absent: systolic murmur, diastolic murmur, rubs, gallop, clicks Neurological exam: Present: alert, oriented X3, CN II-XII intact Psychiatric exam: Present: normal affect, normal mood Skin exam: Present: warm, dry, intact, normal color. Absent: rash Course Vital Signs 05/31/22 06/01/22 22:51 02:52 Temperature 98.5 F 98.6 F Pulse Rate 75 68 Respiratory 18 18 Rate Blood Pressure 128/65 124/85 O2 Sat by Pulse 100 98 Oximetry Medical Decision Making - Medical Decision Making This is a 21-year-old female who presents to the emergency department for coughing and congestion. Patient is negative for Covid, influenza, and RSV. My interpretation of the patient's chest x-ray reveals no localized consolidations or infiltrates. Advised that this is most likely a viral process and no antibiotics are indicated at this time. Prescription for a 5 day course of prednisone, DuoNeb solution, and promethazine DM cough syrup provided with dosing instructions reviewed for all medication. Advised that the promethazine cough syrup can be sedating, and should be taken at night until she knows how it effects her. She should also avoid driving or operating machinery when taking this. She is instructed to remain well-hydrated and get plenty of rest. I did offer her a breathing treatment due to the wheezing and patient feeling like she is having difficulty catching her breath, however she declined. Return precautions reviewed in depth, the patient is instructed to return to the emergency department with any new, worsening, or concerning symptoms. Patient verbalized understanding. This case was discussed in detail with the attending ED physician. Presentation, findings, and treatment plan discussed in detail as well. - Lab Data Lab Results 05/31/22 Range/Units 22:54 Influenza Type A (PCR) Not Detected (Not Detectd) Influenza Type B (PCR) Not Detected (Not Detectd) RSV (PCR) Not Detected (Not Detectd) SARS-CoV-2 (PCR) Not Detected (Not Detectd) - Radiology Data Radiology results: report reviewed, image reviewed Disposition Clinical Impression: Bronchitis Disposition: HOME SELF-CARE Instructions (If sedation given, give patient instructions): Acute Bronchitis (ED) Additional Instructions: Return to the emergency department with any new, worsening, or concerning symptoms. You can use the cough medicine every 4-6 hours as needed, this can be sedating, and you should take your first dose at night until you know how it affects you. Take the prednisone daily for 5 days. You can use the DuoNeb breathing treatments every 6 hours as needed for coughing and shortness of breath. Continue to remain well-hydrated and to make sure that you're getting plenty of rest. Follow up with your primary care provider in 1-2 days. Prescriptions: Ipratropium-Albuterol Nebulize [Duoneb 0.5 mg-3 mg/3 ml Soln] 3 ml INHALATION Q6H PRN #90 ml PRN Reason: Shortness Of Breath predniSONE 50 mg PO DAILY 5 Days #5 tablet Promethazine/Dextromethorphan [Promethazine-Dm Syrup] 5 ml PO Q4-6H PRN #473 ml PRN Reason: Cough Is patient prescribed a controlled substance at d/c from ED?: No Referrals: Juan Daniel Monge DO [Primary Care Provider] - 1-2 days
== END 2022-06-01 03:44 | disposition home or self-care (01) ==
LOC: EC 22:50
DX: J40 Bronchitis, not specified as acute or chronic (principal); F41.9 Anxiety disorder, unspecified; F32.A Depression, unspecified; F12.90 Cannabis use, unspecified, uncomplicated; Z20.822 Contact with and (suspected) exposure to COVID-19
CPT/HCPCS: 71046; 87636; 99285